=== PATIENT | male | born 1995 | race Two or more races ===

== ENCOUNTER 2020-10-21 10:28 | Emergency (ER) | payer OTHER ==
[~2020-10-21] VITALS: Ht 172.7 cm; Wt 91.1 kg
--- NOTE | 2020-10-21 10:35 | NUR ---
CCOLLAR IN PLACE, PT PLACED IN WHEELCHAIR.
--- NOTE | 2020-10-21 10:56 | NUR ---
MORTICIAN INVESTIGATOR: PT TO ROOM FROM LOBBY
--- NOTE | 2020-10-21 11:09 | NUR ---
PT RESTING IN GURNEY, SUPINE C C-COLLAR IN PLACE. PT VERBALIZED UNDERSTANDING FOR FALL PRECAUTIONS AND TO REMAIN FLAT UNTIL SEEN BY PROVIDER. PT'S MOTHER AT BEDSIDE. PT DENIES NEEDS. CALL LIGHT W/IN REACH. PT INSTRUCTED ON USE, VERBALIZED UNDERSTANDING.
[2020-10-21] MEDS ORDERED: KETOROLAC 30 MG/1 ML IM ONE (11:30)
[2020-10-21] MEDS ORDERED: KETOROLAC 30 MG/1 ML ONE (11:52)
--- NOTE | 2020-10-21 11:54 | NUR ---
PT RESTING IN BED, MEDICATED ORDERED
--- NOTE | 2020-10-21 12:10 | NUR ---
PT TO RADIOLOGY VIA KENRMILAGRO ACCOMPAINIED BY ASSOCIATE PROFESSOR OF LITERACY.
--- NOTE | 2020-10-21 12:38 | NUR ---
X-RAY AT BEDSIDE. PT DENIES NEEDS.
[2020-10-21 14:12] VITALS: BP 122/71
== END 2020-10-21 14:16 | disposition home or self-care (01) ==
LOC: ED 14:00
DX: S16.1XXA Strain of muscle, fascia and tendon at neck level, initial encounter (principal); S20.211A Contusion of right front wall of thorax, initial encounter; S60.212A Contusion of left wrist, initial encounter; V49.49XA Driver injured in collision with other motor vehicles in traffic accident, initial encounter; Y93.89 Activity, other specified; Y92.410 Unspecified street and highway as the place of occurrence of the external cause; Y99.8 Other external cause status
CPT/HCPCS: 71045; 72125; 73110; 96372; 99285; J1885